=== PATIENT | female | born 1995 | race African-American/Black ===

== ENCOUNTER 2017-01-24 19:24 | Emergency (ER) | payer MEDICAID, OTHER ==
--- NOTE | 2017-01-24 20:03 | ER Document Report ---
ED Medical Screen (RME) - General Chief Complaint: Vag Bleeding, +preg <12wks Stated Complaint: VAGINAL BLEEDING Time Seen by Provider: 01/24/17 19:58 Notes: 21-year-old female patient who is A2, LMP 12/13/2016. Reports onset yesterday of light pink vaginal bleeding, today cramps with small clots. Patient is blood type O+, this can be found in our blood bank records, and she has never received RhoGam shots tthrough a by history. I have greeted and performed a rapid initial assessment of this patient. A comprehensive ED assessment and evaluation of the patient, analysis of test results and completion of the medical decision making process will be conducted by additional ED providers. TRAVEL OUTSIDE OF THE [place] IN LAST 30 DAYS: No - Related Data Allergies/Adverse Reactions: mushrooms Allergy (Uncoded 01/24/17 19:28) Home Medications: Current Home Medications No Home Medications 01/24/17 [History] Past Medical History - General Last Menstrual Period: 12/13/16 - Social History Chew tobacco use (# tins/day): No Frequency of alcohol use: None Drug Abuse: None Renal/ Medical History: Denies: Hx Peritoneal Dialysis - Immunizations Immunizations up to date: Yes
--- NOTE | 2017-01-24 20:38 | ER Document Report ---
ED GI/ - General Chief Complaint: Vag Bleeding, +preg <12wks Stated Complaint: VAGINAL BLEEDING Time Seen by Provider: 01/24/17 19:58 Notes: Patient is a 21-year-old female, at about 7 weeks gestation by last menstrual period, who comes emergency department for chief complaint of vaginal bleeding and lower abdominal cramping and lower back pain. Symptoms started today. She states she has not had any trauma but she did do "a lot of working out today". She denies dysuria, vaginal discharge, or concerns about STD. She denies any daily medications or medical problems. TRAVEL OUTSIDE OF THE [place] IN LAST 30 DAYS: No - Related Data Allergies/Adverse Reactions: mushrooms Allergy (Uncoded 01/24/17 19:28) Home Medications: Current Home Medications No Home Medications 01/24/17 [History] Past Medical History - General Information source: Patient Last Menstrual Period: 12/13/16 - Social History Smoking Status: Former Smoker Chew tobacco use (# tins/day): No Frequency of alcohol use: None Drug Abuse: None Lives with: Family Family History: Reviewed & Not Pertinent Patient has suicidal ideation: No Patient has homicidal ideation: No - Medical History Medical History: Negative Renal/ Medical History: Denies: Hx Peritoneal Dialysis Surgical Hx: Negative - Immunizations Immunizations up to date: Yes Review of Systems - Review of Systems Constitutional: No symptoms reported EENT: No symptoms reported Cardiovascular: No symptoms reported Respiratory: No symptoms reported Gastrointestinal: See HPI Genitourinary: See HPI Female Genitourinary: See HPI Musculoskeletal: No symptoms reported Skin: No symptoms reported Hematologic/Lymphatic: No symptoms reported Neurological/Psychological: No symptoms reported Physical Exam - Vital signs Interpretation: Normal - General General appearance: Appears well, Alert In distress: None - Patient alert, smiling, well-appearing - HEENT Head: Normocephalic, Atraumatic Eyes: Normal Conjunctiva: Normal Extraocular movements intact: Yes Eyelashes: Normal Pupils: PERRL Sinus: Normal Nasal: Normal Mouth/Lips: Normal Mucous membranes: Normal Pharynx: Normal Neck: Normal - Respiratory Respiratory status: No respiratory distress Chest status: Nontender Breath sounds: Normal. No: Decreased air movement, Wheezing Chest palpation: Normal - Cardiovascular Rhythm: Regular. No: Tachycardia Heart sounds: Normal auscultation, S1 appreciated, S2 appreciated Murmur: No - Abdominal Inspection: Normal Distension: No distension Bowel sounds: Normal Tenderness: Tender - There is mild tenderness noted in the suprapubic and left lower quadrant areas, no guarding, no rigidity, no rebound tenderness. Unremarkable abdomen otherwise.. No: Guarding Organomegaly: No organomegaly - Back Back: Normal, Nontender. No: Tender, CVA tenderness - Extremities General upper extremity: Normal inspection, Nontender, Normal color, Normal ROM , Normal temperature General lower extremity: Normal inspection, Nontender, Normal color, Normal ROM , Normal temperature, Normal weight bearing. No: Sheela's sign - Neurological Neuro grossly intact: Yes Cognition: Normal Orientation: AAOx4 [place] Coma Scale Eye Opening: Spontaneous [place] Coma Scale Verbal: Oriented [place] Coma Scale Motor: Obeys Commands [place] Coma Scale Total: 15 Speech: Normal Motor strength normal: LUE, RUE, LLE, RLE Sensory: Normal - Psychological Associated symptoms: Normal affect, Normal mood - Skin Skin Temperature: Warm Skin Moisture: Dry Skin Color: Normal Course - Re-evaluation Re-evalutation: Patient has already had a conversation about her blood type and RhoGam with triage. Listed as type O+ in the system, never had RhoGam before, this was the reason this was not added on to send (to run along with the blood that was already drawn in the lab). Patient declined a pelvic exam. CBC unremarkable, hCG is mildly elevated in the 3000s, ultrasound showing early IUP at 5 weeks and a few days. No visualized heartbeat, no visualized abnormality otherwise including normal ovaries, cervix, no free fluid. On reexamination patient continues to be well-appearing, continues to have benign abdomen with minimal tenderness, she has no current complaints. Discussed results including ultrasound, blood work, and recommendations with patient in detail. After discussion patient was given a prescription to have her hCG repeated in 2-3 days, she states she also is planning on seeing POLICE SUPERINTENDENT very closely and may perform this follow-up instead. Discussed return precautions in detail, patient states understanding and agreement. - Laboratory Result Diagrams: 01/24/17 20:15 Laboratory results interpreted by me: 01/24/17 01/24/17 20:15 21:05 Beta HCG, Quant 3685.80 H Urine Blood MODERATE H Discharge - Discharge Clinical Impression: Vaginal bleeding affecting early Condition: Stable Disposition: HOME, SELF-CARE Additional Instructions: Your ultrasound does show a in the uterus which appears to be early, however it is difficult to determine more at this time. This still could be early with some bleeding or this could progress into miscarriage. I recommend rest, avoid sexual intercourse, jumping, running, lifting until cleared to do so by POLICE SUPERINTENDENT. Follow-up closely with POLICE SUPERINTENDENT. Return the emergency department for any concerning or worsening symptoms including severe pain, heavy bleeding, passing out, or if something is not right. Forms: Follow-Up Laboratory Testing
[2017-01-24 20:43] LABS: ABSOLUTE BASOPHILS # (AUTO) 0.1 10^3/uL (0.0-0.2); ABSOLUTE EOSINOPHILS # (AUTO) 0.1 10^3/uL (0.0-0.6); ABSOLUTE MONOCYTES (AUTO) 0.4 10^3/uL (0.1-1.4); ABSOLUTE NEUT (AUTO) 3.8 10^3/uL (1.7-8.2); BASOPHILS % (AUTO) 0.9 % (0-2); EOSINOPHILS % (AUTO) 1.4 % (0-6); HEMATOCRIT 39.1 % (36.0-47.0); HEMOGLOBIN 13.3 g/dL (12.0-15.5); HGB HCT DIFFERENCE 0.8; LYMPHOCYTES % (AUTO) 31.4 % (13-45); MEAN CORPUSCULAR HEMOGLOBIN 30.2 pg (27.0-33.4); MEAN CORPUSCULAR HGB CONC 33.9 g/dL (32.0-36.0); MEAN CORPUSCULAR VOLUME 89 fl (80-97); MONOCYTES % (AUTO) 6.2 % (3-13); RED CELL DISTRIBUTION WIDTH 13.8 % (11.5-14.0); SEGMENTED NEUTROPHILS % (AUTO) 60.1 % (42-78); WHITE BLOOD COUNT 6.3 10^3/uL (4.0-10.5)
--- NOTE | 2017-01-24 21:25 | RADIOLOGY REPORT (SQ) ---
EXAM DESCRIPTION: U/S OB TRANSVAGINAL W/O DOP COMPLETED DATE/TIME: 01/24/2017 9:07 pm REASON FOR STUDY: 6wks, cramps, bleeding COMPARISON: None. TECHNIQUE: Transvaginal static and realtime grayscale images acquired of the pelvis. Additional adrian cted spectral and color Doppler images recorded. All images stored on PACs. bHCG: Pending. LIMITATIONS: None. FINDINGS: FETUS: Sac with pole but no cardiac activity yet detectable. EGA: 5 week 4 day. LENNY: 09/22/2017. FHR: No cardiac activity detected. SUBCHORIONIC BLEED: No. SIZE OF BLEED: Not applicable. UTERUS: No masses. No anomalies. CERVICAL LENGTH: 2.3 cm. Closed. RIGHT ADNEXA: Ovary not identified. No adnexal free fluid. No adnexal masses. LEFT ADNEXA: Ovary not identified. No adnexal free fluid. No adnexal masses. FREE FLUID: None. OTHER: No other significant finding. IMPRESSION: 1. Small intrauterine gestational sac with associated pole. Approximately 5 week 4 day gestation. Cardiac activity not appreciated, likely due to very early gestation age. Trimester of : First - 0 to 13 weeks. TECHNICAL DOCUMENTATION: JOB ID: [id number] [employer]- All Rights Reserved
[2017-01-24 21:33] LABS: APPEARANCE,URINE CLEAR; BILIRUBIN,URINE NEGATIVE (NEGATIVE); GLUCOSE, URINE NEGATIVE (NEGATIVE); KETONES,URINE NEGATIVE (NEGATIVE); LEUKOCYTE ESTERASE,URINE NEGATIVE (NEGATIVE); NITRITE,URINE NEGATIVE (NEGATIVE); PROTEIN,URINE NEGATIVE (NEGATIVE); URINE SPECIFIC GRAVITY 1.023; UROBILINOGEN,URINE NEGATIVE mg/dL (<2.0)
== END 2017-01-24 22:55 | disposition home or self-care (01) ==
LOC: ER 19:24
DX: O20.9 Hemorrhage in early pregnancy, unspecified (principal); O26.891 Other specified pregnancy related conditions, first trimester; R10.814 Left lower quadrant abdominal tenderness; O99.89 Other specified diseases and conditions complicating pregnancy, childbirth and the puerperium; M54.5 Low back pain; Z91.018 Allergy to other foods; Z87.891 Personal history of nicotine dependence; Z3A.01 Less than 8 weeks gestation of pregnancy
CPT/HCPCS: 36415; 76817; 81001; 84702; 85025; 99284

== ENCOUNTER → 2017-01-26 | Outpatient (CLI) | payer MEDICAID | LOC: LAB 11:29 | DX: O20.9 Hemorrhage in early pregnancy, unspecified (principal); Z3A.00 Weeks of gestation of pregnancy not specified | CPT/HCPCS: 36415; 84702 ==

== ENCOUNTER 2017-01-27 17:12 | Emergency (ER) | payer MEDICAID ==
--- NOTE | 2017-01-27 17:37 | ER Document Report ---
ED Medical Screen (RME) - General Chief Complaint: Vag Bleeding, +preg <12wks Stated Complaint: VAGINAL BLEEDING Time Seen by Provider: 01/27/17 17:36 Notes: Patient states that she was here 2 days ago for light vaginal bleeding. She states an ultrasound at that time showed that she was approximately 5 weeks . She states that she was told to return to the bleeding got heavier and now the bleeding is heavier. She is also having low back pain and worse cramping. TRAVEL OUTSIDE OF THE [place] IN LAST 30 DAYS: No - Related Data Allergies/Adverse Reactions: mushrooms Allergy (Uncoded 01/27/17 17:17) Past Medical History - General Last Menstrual Period: December 12, 2016 - Social History Chew tobacco use (# tins/day): No Frequency of alcohol use: None Drug Abuse: None Renal/ Medical History: Denies: Hx Peritoneal Dialysis - Immunizations Immunizations up to date: Yes Physical Exam - Vital signs Vitals: Temp Pulse Resp BP Pulse Ox 98.3 F 66 12 112/45 L 99 01/27/17 17:18 01/27/17 17:18 01/27/17 17:18 01/27/17 17:18 01/27/17 17:18 Course - Vital Signs Vital signs: Temp Pulse Resp BP Pulse Ox 98.3 F 66 12 112/45 L 99 01/27/17 17:18 01/27/17 17:18 01/27/17 17:18 01/27/17 17:18 01/27/17 17:18
[2017-01-27 18:08] LABS: ABSOLUTE BASOPHILS # (AUTO) 0.1 10^3/uL (0.0-0.2); ABSOLUTE EOSINOPHILS # (AUTO) 0.1 10^3/uL (0.0-0.6); ABSOLUTE MONOCYTES (AUTO) 0.5 10^3/uL (0.1-1.4); ABSOLUTE NEUT (AUTO) 4.2 10^3/uL (1.7-8.2); BASOPHILS % (AUTO) 0.9 % (0-2); EOSINOPHILS % (AUTO) 1.5 % (0-6); HEMATOCRIT 38.4 % (36.0-47.0); HEMOGLOBIN 12.9 g/dL (12.0-15.5); HGB HCT DIFFERENCE 0.3; LYMPHOCYTES % (AUTO) 28.9 % (13-45); MEAN CORPUSCULAR HEMOGLOBIN 30.1 pg (27.0-33.4); MEAN CORPUSCULAR HGB CONC 33.7 g/dL (32.0-36.0); MEAN CORPUSCULAR VOLUME 89 fl (80-97); MONOCYTES % (AUTO) 6.7 % (3-13); RED CELL DISTRIBUTION WIDTH 13.5 % (11.5-14.0); WHITE BLOOD COUNT 6.8 10^3/uL (4.0-10.5)
[2017-01-27 18:11] LABS: APPEARANCE,URINE CLEAR; BILIRUBIN,URINE NEGATIVE (NEGATIVE); GLUCOSE, URINE NEGATIVE (NEGATIVE); KETONES,URINE NEGATIVE (NEGATIVE); LEUKOCYTE ESTERASE,URINE NEGATIVE (NEGATIVE); NITRITE,URINE NEGATIVE (NEGATIVE); PROTEIN,URINE NEGATIVE (NEGATIVE); URINE SPECIFIC GRAVITY 1.015; UROBILINOGEN,URINE NEGATIVE mg/dL (<2.0)
[2017-01-27 18:26] LABS: ANION GAP 13 (5-19); BLOOD UREA NITROGEN 10 mg/dL (7-20); CALCIUM 10.3 mg/dL (8.4-10.2); CARBON DIOXIDE 26 mmol/L (22-30); CHLORIDE 102 mmol/L (98-107); CREATININE RESULT 0.58 mg/dL (0.52-1.25); GLUCOSE 83 mg/dL (75-110); POTASSIUM 4.6 mmol/L (3.6-5.0); SODIUM 140.7 mmol/L (137-145)
--- NOTE | 2017-01-27 19:17 | ER Document Report ---
ED GI/ - General Chief Complaint: Vag Bleeding, +preg <12wks Stated Complaint: VAGINAL BLEEDING Time Seen by Provider: 01/27/17 17:36 Notes: Patient is a 21-year-old female, at about 5-1/2 weeks gestation by first trimester ultrasound, the comes emergency department for chief complaint of vaginal bleeding, abdominal cramping, and lower back pain. She was evaluated almost 3 days ago, at that time she had an intrauterine but too early to see heartbeat, she states that she has not had any bleeding since then but today she started bleeding heavier, passing clots, and having significantly more painful cramps. She denies fever or chills. She denies any daily medications. TRAVEL OUTSIDE OF THE [place] IN LAST 30 DAYS: No - Related Data Allergies/Adverse Reactions: mushrooms Allergy (Uncoded 01/27/17 17:17) Past Medical History - General Information source: Patient Last Menstrual Period: December 12, 2016 - Social History Smoking Status: Never Smoker Chew tobacco use (# tins/day): No Frequency of alcohol use: None Drug Abuse: None Lives with: Family Family History: Reviewed & Not Pertinent Patient has suicidal ideation: No Patient has homicidal ideation: No - Medical History Medical History: Negative Renal/ Medical History: Denies: Hx Peritoneal Dialysis Surgical Hx: Negative - Immunizations Immunizations up to date: Yes Review of Systems - Review of Systems Constitutional: No symptoms reported EENT: No symptoms reported Cardiovascular: No symptoms reported Respiratory: No symptoms reported Gastrointestinal: See HPI Genitourinary: See HPI Female Genitourinary: See HPI Musculoskeletal: No symptoms reported Skin: No symptoms reported Hematologic/Lymphatic: No symptoms reported Neurological/Psychological: No symptoms reported Physical Exam - Vital signs Vitals: Temp Pulse Resp BP Pulse Ox 98.3 F 66 12 112/45 L 99 01/27/17 17:18 01/27/17 17:18 01/27/17 17:18 01/27/17 17:18 01/27/17 17:18 Interpretation: Normal - General General appearance: Appears well, Alert In distress: None - HEENT Head: Normocephalic, Atraumatic Eyes: Normal Pupils: PERRL - Respiratory Respiratory status: No respiratory distress Chest status: Nontender Breath sounds: Normal. No: Decreased air movement, Wheezing Chest palpation: Normal - Cardiovascular Rhythm: Regular Heart sounds: Normal auscultation Murmur: No - Abdominal Inspection: Normal Distension: No distension Bowel sounds: Normal Tenderness: Tender - Minimal generalized lower abdominal/pelvic tenderness, nonspecific, no guarding Organomegaly: No organomegaly - Back Back: Normal, Nontender. No: Tender, CVA tenderness - Extremities General upper extremity: Normal inspection, Nontender, Normal color, Normal ROM , Normal temperature General lower extremity: Normal inspection, Nontender, Normal color, Normal ROM , Normal temperature, Normal weight bearing. No: Sheela's sign - Neurological Neuro grossly intact: Yes Cognition: Normal Orientation: AAOx4 [place] Coma Scale Eye Opening: Spontaneous [place] Coma Scale Verbal: Oriented [place] Coma Scale Motor: Obeys Commands [place] Coma Scale Total: 15 Speech: Normal Motor strength normal: LUE, RUE, LLE, RLE Sensory: Normal - Psychological Associated symptoms: Normal affect, Normal mood - Skin Skin Temperature: Warm Skin Moisture: Dry Skin Color: Normal Course - Re-evaluation Re-evalutation: RhoGam is not indicated per recent testing. CBC unremarkable still. HCG increased from 3000s, 2 days later was 4000, today is 5000s. Concerningly low progression of hCG. With patient's return symptoms of pain, worsening bleeding , and lack of heartbeat on IUP 3 days ago concern is for developing miscarriage. I discussed this with patient, this is what she expected and she does not appear surprised at all. She states she is not surprised. She does have significant other at bedside and he is supportive. Discussed with INDUSTRIAL ENGINEERING INTERN, Dr. Loco, after discussion he agrees patient is most likely miscarrying. Discussed plan of giving patient pain medication, having her call [facility] clinic for close follow-up, and was return precautions. I discussed this in detail with patient. She states understanding and agreement. - Vital Signs Vital signs: Temp Pulse Resp BP Pulse Ox 98.7 F 69 12 108/53 L 100 01/27/17 19:53 01/27/17 19:53 01/27/17 17:18 01/27/17 19:53 01/27/17 19:53 - Laboratory Result Diagrams: 01/27/17 17:40 01/27/17 17:40 Laboratory results interpreted by me: 01/27/17 01/27/17 17:40 17:40 Calcium 10.3 H Beta HCG, Quant 5399.70 H Urine Blood LARGE H Discharge - Discharge Clinical Impression: Vaginal bleeding before 22 weeks gestation, Pelvic cramping Condition: Stable Disposition: HOME, SELF-CARE Additional Instructions: Your laboratory workup, symptoms, and evaluation are very suggestive of an abnormally developing and impending miscarriage. I spoke with Dr. Loco, INDUSTRIAL ENGINEERING INTERN, please call the referral number listed tomorrow to perform a close follow-up and additional management. Take the pain medication provided if needed. Return to the emergency department for any concerning symptoms including severe bleeding with dizziness, passing out, or if something is not right. See additional details below. Miscarriage Impending You have been evaluated for a possible miscarriage. At this time, it appears that the fetus has stopped growing. A miscarriage occurs when the fetus is abnormal. There is no medicine or treatment to prevent it. If bleeding is not severe, and if your pain can be controlled with medicine, you could complete the miscarriage at home. If that's not practical, or if the miscarriage doesn't progress spontaneously, we will arrange for a D&C procedure. You should rest in bed. Do not douche or have sex for at least a week, or until OK'd by the doctor. If you believe you've passed the fetus, collect it in a zip-lock plastic bag. Be sure to follow up with your doctor. Call the doctor or return for re- examination if there is an increase in bleeding or cramping, extreme weakness, fainting, fever, or passage of tissue. Prescriptions: Ondansetron [Zofran Odt 4 mg Tablet] 1 - 2 tab PO Q4H PRN #15 tab.rapdis PRN Reason: For Nausea/Vomiting Oxycodone HCl/Acetaminophen [Percocet 5-325 mg Tablet] 1 - 2 tab PO Q4H PRN #15 tablet PRN Reason: Referrals: FAHAD LOCO MD [ACTIVE STAFF] - Follow up tomorrow
[2017-01-27] MEDS ORDERED: ONDANSETRON ODT 4 MG TAB (6 TAB/DSPK) PO PRN (19:33)
[2017-01-27] MEDS ORDERED: OXYCODONE-ACETAMINOPHEN 5-325 MG TABLET PO ONE (19:33)
[2017-01-27] MEDS ORDERED: ONDANSETRON 4 MG TAB.RAPDIS PO ONE (19:33)
[2017-01-27] MEDS ORDERED: HYDROCODONE/ACETAMINOPHEN 5-325 MG 6 TAB/DSPK PO PRN (19:33)
[2017-01-27 19:57] VITALS: BP 108/53
== END 2017-01-27 19:57 | disposition home or self-care (01) ==
LOC: ER 17:12
DX: O20.9 Hemorrhage in early pregnancy, unspecified (principal); O26.891 Other specified pregnancy related conditions, first trimester; R10.2 Pelvic and perineal pain; O99.89 Other specified diseases and conditions complicating pregnancy, childbirth and the puerperium; M54.5 Low back pain; Z3A.01 Less than 8 weeks gestation of pregnancy; Z91.018 Allergy to other foods
CPT/HCPCS: 99284; 36415; 84702; 85025; 80048; 81001; S0119